=== PATIENT | female | born 1935 | race Caucasian/White ===

== ENCOUNTER → 2017-02-06 | Outpatient (CLI) | payer MEDICARE, OTHER ==
[~2017-02-06] MED LIST: ACIPHEX20 MG PO; ADVIL200 MG PO; AMOXICILLIN875 MG PO; ASPIRIN 81M81 MG/TA2 PO; AURALGAN EAR DR15 ML OT; B-12 500 MCG PO; CALCIUM 600600 M2 PO; CELEBREX 200MG200 MG PO; FLONASE NASAL S16 GM NS; HCTZ 25MG TAB25 MG PO; IBUPROFEN PO; LIPITOR 40MG TA40 MG PO; NEURONTIN600 MG/TAB PO; NORCO 325 MG-51 TAB PO; NORVASC 5MG5 MG/TAB PO; PAMELOR 25MG25 MG PO; PREMARIN .3MG0.3 MG PO; STOOL SOFTENER100 M2 PO; SYNTHROID0.05 MG/TA PO; SYNTHROID0.112 MG/T PO; THERAPEUTIC VIT1 CAP PO; TOPAMAX 100MG100 M1 PO; ULTRAM 50MG TAB50 MG PO; VITAMIN B650 MG PO; ZOFRAN ODT4 MG PO; ZYLOPRIM 300MG300 MG PO
== END ==
LOC: MC.RAD 14:30
DX: Z12.31 Encounter for screening mammogram for malignant neoplasm of breast (principal)

== ENCOUNTER → 2017-07-02 | Outpatient (CLI) | payer MEDICARE, OTHER | LOC: COL.RAD 13:13 | DX: M19.012 Primary osteoarthritis, left shoulder (principal) | CPT/HCPCS: J3301; Q9967 ==

== ENCOUNTER → 2017-08-24 | Outpatient (CLI) | payer MEDICARE, OTHER | LOC: COL.RAD 14:21 | DX: M25.512 Pain in left shoulder (principal) | CPT/HCPCS: J3301; Q9967 ==

== ENCOUNTER 2018-01-29 16:01 | Emergency (ER) | payer MEDICARE, OTHER ==
[~2018-01-29] VITALS: Ht 152.4 cm; Wt 62.7 kg
[2018-01-29 16:07] VITALS: BP 137/67; TEMP 98.5
[2018-01-29] MEDS ORDERED: LIPITOR 40MG TA40 MG PO (17:54)
[2018-01-29 18:55] VITALS: PULSE 80
== END 2018-01-29 18:55 | disposition home or self-care (01) ==
LOC: COL.ER 16:01
DX: S01.81XA Laceration without foreign body of other part of head, initial encounter (principal); W18.2XXA Fall in (into) shower or empty bathtub, initial encounter

== ENCOUNTER → 2018-03-01 | Outpatient (CLI) | payer MEDICARE, OTHER | LOC: MC.RAD 13:40 | DX: Z12.31 Encounter for screening mammogram for malignant neoplasm of breast (principal) ==

== ENCOUNTER → 2018-04-29 | Outpatient (CLI) | payer MEDICARE, OTHER | LOC: COL.RAD 15:00 | DX: M19.012 Primary osteoarthritis, left shoulder (principal); M85.822 Other specified disorders of bone density and structure, left upper arm ==